=== PATIENT | male | born 1990 | race Caucasian/White ===

== ENCOUNTER 2024-08-15 19:56 | Emergency (ER) | payer BC ==
[2024-08-15 20:26] VITALS: RESP 18; TEMP 98.2
--- NOTE | 2024-08-15 20:27 | ED ---
Chest Pain HPI - General Source: patient, family, RN notes reviewed Mode of arrival: ambulatory Limitations: no limitations <Vanesa Ahn - Last Filed: 08/15/24 20:26> <Mehul Gonzalez - Last Filed: 08/15/24 22:12> - General Chief Complaint: Chest Pain Stated Complaint: TIGHTNESS, HIGH HR, NAUSEA, SOB Time Seen by Provider: 08/15/24 20:27 - History of Present Illness Initial Comments: Quick note: 34 show male presented to ER with a chief complaint of chest tightness. Patient states that started around 5 PM and has been intermittent in nature. Patient does report nausea but denies any dizziness, lightheadedness or shortness of breath. Denies any radiation of the pain. No known cardiac history. (Vanesa Ahn) Patient is a 34-year-old male presents emergency department complaining of chest tightness and heart palpitations. Started at 5 PM and was slightly intermittent in nature afterwards. Has since resolved. Denies any shortness of breath, lightheadedness, dizziness. No radiation of the pain. No diaphoresis. No nausea or vomiting. Patient has no significant past medical history. No significant family medical history of heart disease. States he did get some blood today and does have a history of anxiety and is wondering if he had an anxiety episode today. Currently is asymptomatic. Originally seen as a quick note and I evaluate the patient when he was placed in a room. (Mehul Gonzalez) - Related Data Allergies Allergy/AdvReac Type Severity Reaction Status Date / Time No Known Allergies Allergy Verified 08/15/24 20:26 Review of Systems ROS Other: All systems not noted in ROS Statement are negative. <Vanesa Ahn - Last Filed: 08/15/24 20:26> ROS Other: All systems not noted in ROS Statement are negative. <eMhul Gonzalez - Last Filed: 08/15/24 22:12> ROS Statement: Those systems with pertinent positive or pertinent negative responses have been documented in the HPI. Review of Systems: CONST: Denies fever EYES: Denies blurry vision ENT: Denies nasal congestion C/V: Denies Chest pain RESP: Denies shortness of breath GI: Denies abdominal pain : Denies dysuria SKIN: Denies rash. MSK: Denies joint pain. NEURO: Denies headache (Mehul Gonzalez) EKG Findings - EKG Comments: EKG Findings:: 12-lead Electrocardiogram Interpretation Note. EKG was reviewed and interpreted by myself. 12-lead ECG performed at 2002 is interpreted by me as revealing normal sinus rhythm at a rate of 78 beats per minute. Hydes is normal. NH interval is 168 ms, QRS duration is 87 ms, QTc is 395 ms. Nonspecific T wave inversions in non contiguous leads.. There were no ST or T wave abnormalities to suggest myocardial ischemia or injury. R wave progression across the precordium was satisfactory. By my interpretation this EKG is non- diagnostic for acute ischemia. 12-lead Electrocardiogram Interpretation Note. EKG was reviewed and interpreted by myself. 12-lead ECG performed at 2206 is interpreted by me as revealing normal sinus rhythm at a rate of 69 beats per minute. Hydes is normal. NH interval is 169 ms, QRS duration is 94 ms, QTc is 368 ms. Redemonstrated nonspecific T wave inversions in leads III and V3.. There were no ST or T wave abnormalities to suggest myocardial ischemia or injury. R wave progression across the precordium was satisfactory. By my interpretation this EKG is non-diagnostic for acute ischemia. No acute dynamic changes. - EKG Results: EKG: interpreted by ERMD <Mehul Gonzalez - Last Filed: 08/15/24 22:12> Past Medical History Past Medical History: No Reported History History of Any Multi-Drug Resistant Organisms: None Reported Past Surgical History: Orthopedic Surgery Past Psychological History: No Psychological Hx Reported Smoking Status: Current every day smoker Past Alcohol Use History: Occasional Past Drug Use History: None Reported <Vanesa Ahn - Last Filed: 08/15/24 20:26> General Exam Limitations: no limitations <Vanesa Ahn - Last Filed: 08/15/24 20:26> <Mehul Gonzalez - Last Filed: 08/15/24 22:12> - General Exam Comments Initial Comments: Visual Physical Exam Vital signs reviewed General: Well-appearing, nontoxic, no acute distress. Head: Normocephalic, atraumatic Eyes: PERRLA, EOMI ENT: Airway patent Chest: Nonlabored breathing Skin: No visual rash, normal skin tone Neuro: Alert and oriented 3 Musculoskeletal: No gross abnormalities (Vanesa Ahn) General: Appears in no acute distress. HEAD: Normal with no signs of head trauma. EYES: EOMI ENT: Hearing grossly intact, normal oropharynx. RESPIRATORY: Clear breath sounds bilaterally. No wheezes, rales, or rhonchi. C/V: Regular rate and rhythm. S1 and S2 auscultated, no edema, peripheral pulses 2+ and intact throughout ABD: Abd is soft, nontender, nondistended EXT: no obvious deformity SKIN: No rashes or lesions observed on exposed skin. NEURO: Alert and oriented x 4 (Mehul Gonzalez) Course Vital Signs 08/15/24 08/15/24 20:24 21:50 Temperature 98.2 F Pulse Rate 74 80 Respiratory 18 18 Rate Blood Pressure 133/85 150/82 O2 Sat by Pulse 97 95 Oximetry Chest Pain MDM <Vanesa Ahn - Last Filed: 08/15/24 20:26> <Mehul Gonzalez - Last Filed: 08/15/24 22:12> - MDM I performed the quick note portion of this chart. Electronically signed by Vanesa Ahn PA-C (Vanesa Ahn) Was pt. sent in by a medical professional or institution ([facility], PS[facility]CH[facility], urgent care, hospital, or prison...) When possible be specific @ -No Did you speak to anyone other than the patient for history (EMS, parent, family, police, friend...)? What history was obtained from this source @ -No Did you review nursing and triage notes (agree or disagree)? Why? @ -I reviewed and agree with nursing and triage notes Were old charts reviewed (outside hosp., previous admission, EMS record, old EKG, old radiological studies, urgent care reports/EKG's, prison records)? Report findings @ -No old charts were reviewed Differential Diagnosis (chest pain, altered mental status, abdominal pain women, abdominal pain men, vaginal bleeding, weakness, fever, dyspnea, syncope, headache, dizziness, GI bleed, back pain, seizure, CVA, palpatations, mental health, musculoskeletal)? @ -Differential Chest Pain: Stable Angina, Unstable Angina, STEMI, NSTEMI Aortic Dissection, Pneumothorax, Musculoskeletal, Esophageal Spasm GERD, Cholecystitis, Pancreatitis, Zoster, this is not meant to be an all-inclusive list. EKG interpreted by me (3pts min.). @ -As above X-rays interpreted by me (1pt min.). @ -Chest x-ray reveals no obvious acute cardiopulmonary process CT interpreted by me (1pt min.). @ -None done U/S interpreted by me (1pt. min.). @ -None done What testing was considered but not performed or refused? (CT, X-rays, U/S, labs)? Why? @ -None What meds were considered but not given or refused? Why? @ -None Did you discuss the management of the patient with other professionals (professionals i.e. DrAlison, PA, PSYCHOLOGICAL OPERATIONS, lab, RT, psych nurse, social work therapist, power system dispatcher, teacher, information officer, caser shoe parts)? Give summary @ -No Was smoking cessation discussed for >3mins.? @ -No Was critical care preformed (if so, how long)? @ -No Were there social determinants of health that impacted care today? How? (Homelessness, low income, unemployed, alcoholism, drug addiction, transportation, low edu. Level, literacy, decrease access to med. care, [place] [facility], rehab)? @ -No Was there de-escalation of care discussed even if they declined (Discuss DNR or withdrawal of care, Hospice)? DNR status @ -No What co-morbidities impacted this encounter? (DM, HTN, Smoking, COPD, CAD, Cancer, CVA, ARF, Chemo, Hep., AIDS, mental health diagnosis, sleep apnea, morbid obesity)? @ -None Was patient admitted / discharged? Hospital course, mention meds given and route, prescriptions, significant lab abnormalities, going to OR and other pertinent info. @ -Based on the patient's presentation and physical exam, presents to the emergency department with chest pain/palpitations that have since resolved. The story seems more anxiety related. Patient has no significant risk factors. Patient's heart score is low at 1. Patient originally seen as a quick note I evaluated patient when he was placed in a hallway bed. Vital signs are within acceptable limits and he is asymptomatic. I did discuss with him his workup which included undetectable troponin, EKG that shows no obvious acute ischemic changes, as well as a normal chest x-ray. I discussed the results with him. I did offer to repeat a troponin level and EKG however patient would like to leave at this time. Would like did not repeat blood work. I believe this is reaso nable due to his heart score being low. We will repeat EKG prior to discharge. Repeat EKG shows no acute dynamic changes and is unchanged from earlier EKG. At this time, patient would like to go home. I believe this is reasonable. Strict return precautions were discussed. Recommended he follow-up with his PCP at a minimum within the next 1 to 3 days as well as potentially a clinical support manager. He was in agreement this plan. I instructed the patient to follow up with their PCP in the next 1-3 days. I explained that the patient should return to the emergency department if they experience any worsening symptoms. Strict return precautions were discussed with the patient. The patient expressed understanding of these instructions. I answered all questions that the patient had. The patient was discharged home in good condition with their prescriptions and follow up information. Undiagnosed new problem with uncertain prognosis? @ -No Drug Therapy requiring intensive monitoring for toxicity (Heparin, Nitro, Insulin, Cardizem)? @ -No Were any procedures done? @ -No Diagnosis/symptom? @ -Atypical chest pain Acute, or Chronic, or Acute on Chronic? @ -Acute Uncomplicated (without systemic symptoms) or Complicated (systemic symptoms)? @ -Uncomplicated Side effects of treatment? @ -No Exacerbation, Progression, or Severe Exacerbation? @ -No Poses a threat to life or bodily function? How? (Chest pain, [place], [place], pneumonia, PE, COPD, DKA, ARF, appy, cholecystitis, CVA, Diverticulitis, Homicidal, Suicidal, threat to staff... and all critical care pts) @ -Unlikely at this time (Mehul Gonzalez) Disposition <Vanesa Ahn - Last Filed: 08/15/24 20:26> Is patient prescribed a controlled substance at d/c from ED?: No Time of Disposition: 22:11 <Mehul Gonzalez - Last Filed: 08/15/24 22:12> Clinical Impression: Atypical chest pain Disposition: HOME SELF-CARE Condition: Good Instructions (If sedation given, give patient instructions): Chest Pain (ED) Additional Instructions: Your diagnosis is atypical chest pain. Please follow-up with your PCP in the next 1 to 3 days. Please return to the emergency department if any worsening symptoms. Consider following up with a clinical support manager as well. Contact information for clinical support manager in discharge. Referrals: None,Stated [Primary Care Provider] - 1-2 days Chintan Barnes MD [Medical Doctor] - 1-2 days Forms: Area PCPs
[2024-08-15 20:49] LABS: Basophils # (A) 0.1 k/uL (0-0.2); Basophils % (A) 1 %; Eosinophils # (A) 0.3 k/uL (0-0.7); Eosinophils % (A) 3 %; HCT 46.8 % (39.0-53.0); HGB 16.2 gm/dL (13.0-17.5); Lymphocytes # (A) 1.4 k/uL (1.0-4.8); Lymphocytes % (A) 13 %; MCH 29.9 pg (25.0-35.0); MCHC 34.7 g/dL (31.0-37.0); MCV 86.3 fL (80.0-100.0); Mean Platelet Volume 7.9; Monocytes # (A) 0.5 k/uL (0-1.0); Monocytes % (A) 5 %; Neutrophils # (A) 8.4 k/uL (1.3-7.7); Neutrophils % (A) 77 %; Platelet Count 287 k/uL (150-450); RBC 5.42 m/uL (4.30-5.90); RDW 13.1 % (11.5-15.5); WBC 10.9 k/uL (3.8-10.6)
[2024-08-15 20:58] LABS: INR 0.9 (<1.2); Partial Thromboplastin Time 24.4 sec (22.0-30.0); Prothrombin Time 9.9 sec (10.0-12.5)
--- NOTE | 2024-08-15 21:00 | XR ---
EXAMINATION TYPE: XR chest 2V DATE OF EXAM: 08/15/2024 CLINICAL HISTORY: Chest Pain TECHNIQUE: Frontal and lateral views of the chest are obtained. COMPARISON: None FINDINGS: There is no focal air space opacity, pleural effusion, or pneumothorax seen. The cardiac silhouette size is within normal limits. The osseous structures are intact. IMPRESSION: No acute cardiopulmonary process. [facility], , 08/15/2024 8:58 PM
[2024-08-15 21:02] LABS: ALT 63 U/L (4-49); AST 41 U/L (17-59); African American GFR (CKD) >90 (>60 ml/min/1.73 sqM); Albumin 4.7 g/dL (3.5-5.0); Alkaline Phosphatase 56 U/L (38-126); Anion Gap 8 mmol/L; Blood Urea Nitrogen 12 mg/dL (9-20); Calcium 9.5 mg/dL (8.4-10.2); Carbon Dioxide 22 mmol/L (22-30); Chloride 109 mmol/L (98-107); Glucose 101 mg/dL (74-99); Magnesium 2.2 mg/dL (1.6-2.3); Non-African American GFR(CKD) >90 (>60 ml/min/1.73 sqM); Potassium 4.1 mmol/L (3.5-5.1); Sodium 139 mmol/L (137-145); Total Bilirubin 0.7 mg/dL (0.2-1.3); Total Protein 7.8 g/dL (6.3-8.2)
[2024-08-15 22:32] VITALS: BP 116/74; PULSE 69
== END 2024-08-15 22:32 | disposition home or self-care (01) ==
LOC: EC 19:56
DX: R07.89 Other chest pain (principal); F17.200 Nicotine dependence, unspecified, uncomplicated
CPT/HCPCS: 36415; 71046; 80053; 83735; 84484; 85025; 85610; 85730; 93005; 99285